=== PATIENT | female | born 1980 | race Caucasian/White ===

== ENCOUNTER 2024-03-14 12:42 | Outpatient (AMB) | payer OTHER, SELFPAY ==
--- NOTE | 2024-03-14 13:01 | A.OFFPC_ITS ---
Vital Signs 03/14/24 13:04 Height 5 ft 6 in Weight 144 lb 6 oz BMI 23.3 BP 103/66 Blood Pressure Location Lt brachial Position Sitting Respiration 12 Pulse 63 Pulse Source Pulse Oximeter Pulse Oximetry (%) 98 Oxygen Delivery Method Room Air Intake Visit Reasons: [facility] care requesting a PE Intake Note: new patient to establish care Class 1 Owner Operator Required: No Allergies No Known Allergies Allergy (Verified 03/14/24 13:23) Medication List - Last Reconciled 03/14/24 by ROB Vo estradiol patches transdermal lamotrigine 100 mg PO DAILY progesterone micronized 100 mg PO BEDTIME Tobacco use date assessed: 03/14/24 Dental Screening Dental Screen Date: 03/14/24 Did you have a dental visit in the last 12 months?: No Did you have a dental problem in the last 6 months where you did not have access to dental care?: No Was dental information given to patient?: Patient has dentist HPI HPI Comments History of Present Illness Details 44-year-old female with bipolar disorder with suicide attempt and psych hospitalizations, perimenopausal, acne , seasonal allergies Health Maintenance: ? Colon ? Mammo Jun 2024 has one scheduled ? DEXA n/a ? PAP UTD ? Tdap declined Specialists: Psychology Dermatology OBGyn Allergy immunology Here today for CPE, as a new patient. Optho - no glasses. No concerns. Exercising. Eating well. Active w/ care team. Has diarrhea - described as borderline - when eating white bread this resolves it. Complain of seasonal allergies uncontrolled with thoc-jqn-[id number] use of antihistamines and Flonase. Plan Advised to add simple starch into diet, such as white bread, to resolve diarrhea. Continue care with care team. Refer to Allergy and immunology for allergy testing and treatment. Continue all medications as currently prescribed Return to the office in 1 year for complete physical exam, sooner as needed [facility] Medical History Bipolar disorder Surgical History (Updated 03/14/24 @ 13:10 by Uma Vallejo MA) No pertinent past surgical history Family History (Updated 03/14/24 @ 13:13 by Uma Vallejo MA) Father Hypertension Mother Mental health disorder Alcoholism Psychiatric disorder Paternal Grandmother Clotting disorder Paternal Grandfather Prostate cancer Maternal Grandmother Uterine cancer Social History (Updated 03/14/24 @ 13:08 by Uma Vallejo MA) Household Members: None Both parents involved: No Housing: Apartment Are you a primary nurse care manager to a significant other at home: No Do you presently have visiting nurse or other home services: No 75 years or older and lives alone: No Alcohol intake: never Patient Tobacco Use Status: Former Tobacco user Tobacco use type: Cigarette e-Cigarette/Vaping Use: Never Used Second Hand Smoke Exposure: No service: No Current occupational status: disabled Current occupational exposures/hazards: No Cognitive needs: No Hearing needs: No Vision needs: No Questionnaire PHQ-9 Over the last 2 weeks, how often have you been bothered by any of the following problems? 1. Little interest or pleasure in doing things: several days 2. Feeling down, depressed, or hopeless: several days 3. Trouble falling or staying asleep, or sleeping too much: several days 4. Feeling tired or having little energy: not at all 5. Poor appetite or overeating: not at all 6. Feeling bad about yourself - or that you are a failure or have let yourself or your family down: not at all 7. Trouble concentrating on things, such as reading the newspaper or watching television: several days 8. Moving or speaking so slowly that other people could have noticed. Or the opposite - being so fidgety or restless that you have been moving around a lot more than usual: not at all 9. Thoughts that you would be better off or of hurting yourself in some way: not at all Total score: 4 Depression Screening Interpretation: Negative Depression Screening Done: Yes 94975 - PHQ-9 Billing: Yes Source: Developed by Drs. Daniel Toro, Enid Pelayo, Gomez Lamar and colleagues, with an educational [place] from [employer]) by [employer]. Thrive Questionnaire Date Thrive assessed: 03/14/24 I am a: Patient What is your living situation today?: I have a steady place to live Within the past 12 months, did the food you bought not last and you didn't have the money to get more?: Sometimes True Within the past 12 months, did you worry whether your food would run out before you got money to buy more?: Sometimes True Do you have trouble paying for medicines?: No Do you have trouble getting transportation to medical appointments?: Yes Do you have trouble paying your heating and electricity bill?: Yes Do you have trouble taking care of your child, family member or friend?: No Do you have trouble with day-to-day activities such as bathing, preparing meals, shopping, managing finances, etc.?: I choose not to answer this question Are you currently unemployed and looking for a job?: I choose not to answer this question Are you interested in more education?: I choose not to answer this question Please select the resources that you would like help with: Job search/training and Education Currently or been in a relationship where the following occur: I choose not to answer THRIVE Score: 4 AUDIT C Alcohol Use Questionnaire (AUDIT-C) 1. How often do you have a drink containing alcohol?: Never Total Score: 0 Score Reviewed/Action Taken: Yes JAKUB-7 AMB Questionnaire JAKUB-7 Date JAKUB - 7 assessed: 03/14/24 Feeling nervous, anxious, or on edge: 1 = Several days Not being able to stop or control worryin = Several days Worrying too much about different things: 2 = More than half the days Trouble relaxin = Several days Being so restless that it is hard to sit still: 1 = Several days Becoming easily annoyed or irritable: 2 = More than half the days Feeling afraid as if something awful might happen: 2 = More than half the days Total JAKUB-7 score (0-4 normal; 5-9 mild; 10-14 moderate; 15-21 severe): 10 Source: Developed by Drs. Daniel Toro, Enid Pelayo, Gomez Lamar and colleagues, with an educational [place] from [employer]) by [employer]. JAKUB-7 Assessment Billing JAKUB-7 Assessment Tool: JAKUB-7 Assessment 63451 Review of Systems Const Details: Constitutional: Denies fever. Skin: Denies rash. Eye: Denies eye pain. ENMT: Denies sore throat and nasal congestion. Respiratory: Denies shortness of breath and cough. Gastrointestinal: Denies nausea, vomiting or abdominal pain. Cardiovascular: Denies chest pain and syncope. Genitourinary: Denies dysuria. Musculoskeletal: Denies back pain and extremity pain. Neurologic: Denies headaches, confusion, and weakness. Psychiatric: Denies suicidal thoughts and substance abuse. Allergy/ Immunologic: Denies impaired immunity. Physical exam (Primary Care) Vital Signs: Last Vital Signs Pulse 63 03/14/24 13:04 Resp 12 03/14/24 13:04 BP 103/66 03/14/24 13:04 Pulse Ox 98 03/14/24 13:04 Oxygen Delivery Method Room Air 03/14/24 13:04 BMI result Body Mass Index 23.3 Tobacco/Smoking Status: Tobacco use Status Tobacco use date assessed 03/14/24 03/14/24 13:08 Patient Tobacco Use Status Former Tobacco user 03/14/24 13:08 Tobacco use type Cigarette 03/14/24 13:08 e-Cigarette/Vaping Use Never Used 03/14/24 13:08 PHQ-9: PHQ-9 Score PHQ-9: Total score 4 03/14/24 13:31 Depression Screening Interpretation: Negative Thrive Assessment: Date of Thrive Assessment Date Thrive assessed 03/14/24 03/14/24 13:03 Currently or been in a relationship where the following occur: I choose not to answer Const Other: General: Well developed, well nourished, in no acute distress. Appears stated age. Head: Normocephalic, atraumatic. Eyes: Pupils are equal, round and reactive to light and accommodation. Conjunctivae are clear. Vision grossly normal. Ears: TMs clear AU, EACS WNL Nose: Patent, without discharge. Mouth: There are no ulcers or lesions noted. No inflammation, no post nasal drip, no plaques nor exudates. Neck: Supple, no adenopathy or thyromegaly. Lungs: Clear to auscultation bilaterally. No rales, rhonchi or wheeze noted. Good air flow in all alvarado. Heart: Regular rate and rhythm. No murmurs, click, rubs or gallops are noted. Abdomen: Bowel sounds present in all quadrants. The abdomen is soft, nontender, with no masses or organomegaly noted. No hernias are noted. Musculoskeletal: Joints are nontender, without swelling, redness, or effusions. Range of motion is observed to be normal. Pulses: Peripheral pulses are equal and palpable bilaterally. Extremities: No clubbing, cyanosis nor edema is noted. Neurologic: Gait and station normal. Cranial Nerves 2-12 intact. Motor strength grossly symmetrical and intact. No sensory loss. Balance normal. Skin: No rashes, ulcers, or lesions noted. Turgor is good. Skin color is good. Hair and nails are without abnormalities. Psych: Normal eye contact, affect and mood appropriate, and normal interactions. Patient is alert and appropriate to context. Coding Level of Care Code New Pt Prev Care 40-64y(66444) Diagnoses Encounter for general adult medical examination without abnormal findings Z00.00 Seasonal allergies J30.2 Bipolar affective disorder, currently depressed, mild F31.31 Active/Remission status: currently active Current bipolar episode type: depressed Current episode severity: mild Additional Codes JAKUB-7 Assessment Billing - JAKUB-7 Assessment Tool: JAKUB-7 Assessment 71746 ([id number]) PHQ-9 - 23784 - PHQ-9 Billing: Yes ([id number]) Assessment & Plan Assessment & Plan (1) Encounter for general adult medical examination without abnormal findings: Code(s): Z00.00 - Encounter for general adult medical examination without abnormal findings Plan: . (2) Seasonal allergies: Code(s): J30.2 - Other seasonal allergic rhinitis Category: Medical Plan: .. (3) Bipolar disorder: Code(s): F31.9 - Bipolar disorder, unspecified Category: Medical Qualifiers: Active/Remission status: currently active Current bipolar episode type: depressed Current episode severity: mild Qualified Code(s): F31.31 - Bipolar disorder, current episode depressed, mild Plan: . Orders: Referrals Allergy & Immunology Referral J30.2 - Other seasonal allergic rhinitis Patient Instructions: Walk-In Care (Urgent Care): We Make it Easy Walk-in for urgent medical issues such as: ? Seasonal Allergies ? Insect Bites ? Cough ? Diarrhea ? Acute Asthma Attacks ? Back, Knee or Joint Pain ? Ear Infection ? Fever without a Rash ? Headaches ? Nausea ? [place] Eye, Rash or Skin Irritation ? Sore Throat ? Sports Physicals ? Vomiting Most insurances are accepted. Patients do not need to be part of the [facility] to seek care at the walk-in clinic. Locations [facility] [address], [place] [address] ? [phone] [facility] in [place] provides services to ages 18 and over. Open Tuesday-Tuesday: 8 a.m. to 5 p.m. and Tuesday: 9 a.m. to 3 p.m.* *Hours may vary due to staffing availability. To confirm Walk-In Care hours in [place], please call [phone]. [address] [place] [address] ? [phone] [facility] in [place] provides services to ages 12 and over. Open Tuesday-Tuesday: 8 a.m. to 5 p.m. Hours may vary due to staffing availability. To confirm Walk-In Care hours in [place], please call [phone]. LABORATORY SERVICES: [facility] ? Primary Location [address] [place] [address] Tuesday through Tuesday 6:00 AM ? 5:00 PM Tuesday 7:00 AM ? 11:00 AM* [phone] The [facility] is centrally located near the front entrance of the [facility] for easy outpatient access. Convenient parking is provided for outpatients. *Hours may vary due to staffing availability. To confirm Laboratory hours for any location, please call [phone]. Offsite Location For your convenience, we offer offsite laboratory draw stations at the following locations: [address] [place] [address] ? [address], [address] Tuesday through Tuesday 7:30 AM ? 1:00 PM* [phone] *Hours may vary due to staffing availability. To confirm Laboratory hours for any location, please call [phone]. [place] ? [address] Tuesday through Tuesday 6:00 AM ? 3:30 PM* Tuesday 6:30 AM ? 3 PM* [phone] *Hours may vary due to staffing availability. To confirm Laboratory hours for any location, please call [phone] [place] [address] Tuesday through Tuesday 7:30 AM ? 4:00 PM* [phone] *Hours may vary due to staffing availability. To confirm Laboratory hours for any location, please call [phone] [place] [address] Tuesday through 9:00 AM ? 4:00 PM* *Hours may vary due to staffing availability. To confirm Laboratory hours for any location, please call [phone]. Appointments are not necessary. Walk-ins are welcome. Like all the departments throughout the [facility], our Lab undergoes frequent reviews to ensure the quality and accuracy of test results, and our staff takes special pride in its status as a nationally accredited facility. Patient Portal: ONE PATIENT. ONE RECORD. BETTER CARE. [facility] has a fully integrated, cutting- edge mobile electronic health information system that has revolutionized the way we care for our patients and manage our organization. This system improves communication and coordination enabling us to provide safe, higher-quality care, and an overall positive experience for staff and patients. Our first priority, as always, is to deliver the highest quality care possible. The system is running in the background supporting that priority. This portal is for all [facility] and [facility] services and practices. If you are experiencing any technical difficulties with enrolling or logging into the Patient Portal please complete the [facility] Patient Portal Technical Support Form. [facility] now offers a new secure on-line interactive tool for patients to review their health information ? ?Patient Portal. This interactive web portal will enable patients and their families to take an active role in their care by providing easy, secure access to their health information via the internet. The Patient Portal provides patients with instant access to their health information, including laboratory results, medications, allergies, demographic information, visit history, and more. In addition to managing their own care, parents and health care proxies with authorized consent will appreciate the ability to access the records of those individuals for whom they provide care. Please note: if you wish to gain access (Proxy) to another patient?s portal, you will be required to come to the Medical Records Department in person at [facility]. Both the patient giving proxy access and the proxy will need to provide photo identification and complete the appropriate authorization. The Patient Portal also allows track their appointments online. The [facility] Patient Portal also saves patients time by allowing them to submit updates to their demographic and contact information prior to their visits. Portal email notifications will also alert patients to any new activity on their portal, such as test results and new appointments. In order to initially enroll in the [facility] Patient Portal, you will need to enter some required information including the following: * your [facility] Medical Record number * your personal home email address * name * date of Please note: In order to enroll in the [facility] Patient Portal, we need to have y our email address on file in your electronic medical record. ?The email address needs to be specific for one person (yourself) in order for your Portal enrollment to be successful. ?You can update your email address in person with our Registration staff when you are registering for a hospital visit. ?Otherwise, you will need to come to the Health Information Management (Medical Records) Department at [facility]. ?We are open from Tuesday ? Tuesday from 7:30 a.m. ? 4:30 p.m. ?You will be required to present a photo id. Once you have successfully enrolled in the Patient Portal, you will receive a one-time user id and password for the Portal, sent to your email address. ?This will allow you to log into the Patient Portal within 99 hrs and reset your own logon id and password, and define personal security questions. ?Once your permanent login and password have been set, you can log into the [facility] Patient Portal at any time via the blue button above or from the Portal Logon button on any page of the [facility] website. [facility] and [facility] encourage all of our patients to enroll in Patient Portal as it presents a valuable opportunity for patients and their families to actively participate in their care and stay healthy Welcome to [facility]. ?We look forward to working with you. Health screenings for women You should visit your health care provider from time to time, even if you are healthy. The purpose of these visits is to: Screen for medical issues Assess your risk for future medical problems Encourage a healthy lifestyle Update vaccinations and other preventive care services Help you get to know your provider in case of an illness Information Even if you feel fine, you should still see your provider for regular checkups. These visits can help you avoid problems in the future. For example, the only way to find out if you have high blood pressure is to have it checked regularly. High blood sugar and high cholesterol levels also may not have any symptoms in the early stages. A simple blood test can check for these conditions. There are specific times when you should see your provider or receive specific health screenings. The [place] Preventive Services Task Force publishes a list of recommended screenings. Below are screening guidelines for women ages 18 to 39. BLOOD PRESSURE SCREENING Your blood pressure should be checked at least once every 3 to 5 years if: Your blood pressure is in the normal range (top number less than 120 mm Hg and bottom number less than 80 mm Hg) You don't have risk factors for high blood pressure Ask your provider if you need your blood pressure checked more often if: The top number is 120 to 129 mm Hg or the bottom number is 70 to 79 mm Hg You have diabetes, heart disease, kidney problems, are overweight, or have certain other health conditions You have a first-degree relative with high blood pressure You are Black You had high blood pressure during a If the top number is 130 mm Hg or greater or the bottom number is 80 mm Hg or greater, this is considered stage 1 hypertension. Schedule an appointment with your provider to learn how you can reduce your blood pressure. Watch for blood pressure screenings in your area. Ask your provider if you can stop in to have your blood pressure checked. BREAST CANCER SCREENING Experts do not agree about the benefits of breast self-exams in finding breast cancer or saving lives. Talk to your provider about what is best for you. A screening mammogram is not recommended for most women under age 40. Your provider may discuss and recommend mammograms, MRI scans, or ultrasounds if you have an increased risk for breast cancer, such as: A mother or sister who had breast cancer at a young age (most often starting screening earlier than the age the close relative was diagnosed) You carry a high-risk genetic marker CERVICAL CANCER SCREENING Cervical cancer screening should start at age 21 years unless your provider advises otherwise. After the first test: Women ages 21 through 29 should have a Pap test every 3 years. Exoprts do not agree on whether HPV testing is recommended for this age group. Women ages 30 through 65 should be screened with either a Pap test every 3 years or the HPV test every 5 years or both tests every 5 years (called cotesting ). Women who have been treated for precancer (cervical dysplasia) should continue to have Pap tests for 20 years after treatment or until age 65, whichever is longer. If you have had your uterus and cervix removed (total hysterectomy), and you have not been diagnosed with cervical cancer or precancer (high grade cervical neoplasia), you do not need cervical cancer screening. CHOLESTEROL SCREENING Cholesterol screening should begin at: Age 45 for women with no known risk factors for coronary heart disease Age 20 for women with known risk factors for coronary heart disease Repeat cholesterol screening should take place: Every 5 years for women with normal cholesterol levels More often if changes occur in lifestyle (including weight gain and diet) More often if you have diabetes, heart disease, kidney problems, or certain other conditions DIABETES SCREENING You should be screened for diabetes starting at age 35 and then repeated every 3 years if you have no risk factors for diabetes. Screening may need to start earlier and be repeated more often if you have other risk factors for diabetes, such as: You have a first degree relative with diabetes. You are overweight or have obesity. You have high blood pressure, prediabetes, or a history of heart disease. Screening for diabetes should be done if you are planning to become and you are overweight and have other risk factors such as high blood pressure. DENTAL EXAM Go to the dentist once or twice every year for an exam and cleaning. Your dentist will evaluate if you need more frequent visits. EYE EXAM Have an eye exam every 5 to 10 years before age 40. If you have vision problems, have an eye exam every 2 years or more often if recommended by your provider. You should have an eye exam that includes an examination of your retina (back of your eye) at least every year if you have diabetes. IMMUNIZATIONS Commonly needed vaccines include: Flu shot: get one every year. COVID-19 vaccine: ask your provider what is best for you. Tetanus-diphtheria and acellular pertussis (Tdap) vaccine: have one at or after age 19 as one of your tetanus-diphtheria vaccines if you did not receive it as an adolescent. Tetanus-diphtheria: have a booster (or Tdap) every 10 years. Varicella vaccine: receive 2 doses if you never had chickenpox or the varicella vaccine. Hepatitis B vaccine: receive 2, 3, or 4 doses, depending on your exact circumstances. Measles, mumps, and rubella (MMR) vaccine: receive 1 to 2 doses if you are not already immune to MMR. Your provider can tell you if you are immune. Ask your provider about the human papillomavirus (HPV) vaccine if: You have not received the HPV vaccine in the past You have not completed the full vaccine series (you should catch up on this shot) Ask your provider if you should receive other immunizations if you have certain health problems that increase your risk for some diseases such as pneumonia. INFECTIOUS DISEASE SCREENING Women who are sexually active should be screened for chlamydia and gonorrhea up until age 25. Women 25 years and older should be screened for chlamydia and gonorrhea if at high risk. Screening for hepatitis C: All adults ages 18 to 79 should get a one-time test for hepatitis C. people should be screened at every . Screening for human immunodeficiency virus (HIV): All people ages 15 to 65 should get a one-time test for HIV. Depending on your lifestyle and medical history, you may also need to be screened for infections such as syphilis and HIV, as well as other infections. PHYSICAL EXAM All adults should visit their provider from time to time, even if they are healthy. The purpose of these visits is to: Screen for disease Assess your risk of future medical problems Encourage a healthy lifestyle Update your vaccinations and other preventive care services Maintain a relationship with a provider in case of an illness Your height, weight, and BMI should be checked at every exam. During your exam, your provider may ask you about: Depression and anxiety Diet and exercise Alcohol and tobacco use Safety issues, such as using seat belts, smoke detectors, and intimate partner violence Your medicines and risk for interactions SKIN SELF-EXAM Your provider may check your skin for signs of skin cancer, especially if you're at high risk, such as if you: Have had skin cancer before Have close relatives with skin cancer Have a weakened immune system OTHER SCREENING Talk with your provider about colon cancer screening if you have a strong family history of colon cancer or polyps, or if you have had inflammatory bowel disease or polyps yourself. Routine bone density screening of women under 40 is not recommended.
[2024-03-14 13:04] VITALS: BP 103/66; PULSE 63; RESP 12; O2SAT 98; BMI 23.3
== END 2024-03-14 13:37 | disposition home or self-care (01) ==
LOC: HO.HMCFM 12:43
PROVIDERS: PCP Nurse Practitioner Family; Visit Provider Nurse Practitioner Family
DX: Z00.00 Encounter for general adult medical examination without abnormal findings (principal); J30.2 Other seasonal allergic rhinitis; F31.31 Bipolar disorder, current episode depressed, mild

== ENCOUNTER → 2024-03-14 12:42 | Outpatient (BNVA) | payer OTHER, SELFPAY | PROVIDERS: PCP Nurse Practitioner Family; Visit Provider Nurse Practitioner Family | DX: Z00.00 Encounter for general adult medical examination without abnormal findings (principal); J30.2 Other seasonal allergic rhinitis; F31.31 Bipolar disorder, current episode depressed, mild | CPT/HCPCS: 96127; 99386 ==

== ENCOUNTER 2024-07-11 15:23 | Outpatient (AMB) | payer OTHER, SELFPAY ==
--- NOTE | 2024-07-11 15:26 | MHC.PC.OV ---
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 Required: No Allergies No Known Allergies Allergy (Verified 07/11/24 15:43) Medication List - Last Reconciled 07/11/24 by KEERTHI Vo- estradiol patches transdermal lamotrigine 150 mg PO DAILY olanzapine 2.5 mg PO DAILY progesterone micronized 100 mg PO BEDTIME Tobacco use date assessed: 07/11/24 Dental Screening Dental Screen Date: 07/11/24 Did you have a dental visit in the last 12 months?: Yes Did you have a dental problem in the last 6 months where you did not have access to dental care?: No Was dental information given to patient?: Patient has dentist HPI HPI Comments History of Present Illness Details 44-year-old female with bipolar disorder with suicide attempt and psych hospitalizations, perimenopausal, acne , seasonal allergies Health Maintenance: ? Colon ? Mammo Jun 2024 has one scheduled ? DEXA n/a ? PAP UTD ? Tdap declined Specialists: Psychology Dermatology OBGyn Allergy immunology History of Present Illness - The patient is a 44-year-old female presenting with concerns regarding her immunization and vaccine status. - The patient is planning to start college in the fall for a health sciences program and requires updated immunizations for registration purposes. - She does not have her original immunization records, including those for Varicella and Tetanus, last updated in her late 20s. - She has already received three COVID-19 vaccinations, as verified by the state registry. - A recommendation was made for a Tetanus booster, given the uncertainty of her vaccination status. - The patient has engaged with [employer] for titer testing, as part of her program requirements, covering potential immunity for Hepatitis, Measles, Mumps, and Rubella. - Additional consideration for program-specific vaccinations, including potential future flu vaccination according to the year requirements, was discussed. Social History - The patient plans to enroll in college in the fall for a program in health sciences, with interest in radiology technology or respiratory therapy. Health Maintenance - Discussion on updating immunizations for college registration, including plans for a Tetanus booster. - Initiation and verification of COVID-19 vaccinations mentioned. - Plans to check serologic titers for immunity to Hepatitis, Measles, Mumps, and Rubella. - Anticipatory guidance provided for required flu vaccination due to program stipulations. Review of Systems - General: Denies any current health issues, reports being 100% well. - Immunologic: Reports uncertainty about past Varicella vaccination and need for Tetanus booster. Physical Exam General: Well developed, well nourished, in no acute distress. Appears stated age. Head: Normocephalic, atraumatic. Eyes: Pupils are equal, round and reactive to light and accommodation. Conjunctivae are clear. Vision grossly normal. Lungs: Clear to auscultation bilaterally. No rales, rhonchi or wheeze noted. Good air flow in all alvarado. Heart: Regular rate and rhythm. No murmurs, click, rubs or gallops are noted. Psych: Normal eye contact, affect and mood appropriate, and normal interactions. Patient is alert and appropriate to context. Discussion Notes I discussed with the patient the importance of updating her immunizations for her upcoming college program, particularly focusing on ensuring Tetanus vaccination and checking her immunity status for Hepatitis, Measles, Mumps, and Rubella through titer tests. I recommended proceeding with a Tetanus booster today due to her uncertainty of prior vaccinations. We discussed the patient's participation in a patient portal to access her vaccination records and facilitated guidance on obtaining necessary immunizations at her local pharmacy. I also reviewed the need to meet specific program vaccination requirements, including anticipated flu vaccination, and reassured on following the upcoming test results to inform further actions. Assessment and Plan 1. Immunization Status Update: The patient's immunization status is indeterminate, necessitating a Tetanus booster today. I'll facilitate serologic testing for immunity regarding Hepatitis, Measles, Mumps, and Rubella, assisting her program registration. Additional vaccinations will be pursued through local pharmacy options, post-test results. Patient Instructions - Receive the Tetanus booster today. - Visit the lab for serologic testing of Hepatitis, Measles, Mumps, and Rubella titers today - Look for updates in the patient portal regarding immunity status. - If necessary based on results, proceed to the local pharmacy to receive the recommended vaccinations. - Plan for a fall flu vaccine per program requirements. - CPE form given 03/2024 Consent The patient consented to receive the Tetanus booster today after discussing the benefits, including protection from Tetanus infection, and the absence of significant risks with the booster. Consent was verbally obtained from the patient. Patient was informed and verbally consented to the use of an ambient scribe for clinic note documentation during this visit. Total time spent caring for the patient today was 30 minutes. This includes time spent before the visit reviewing the chart, time spent during the visit, and time spent after the visit on documentation, reviewing laboratory results, diagnostic imaging, medications, performing a medically necessary evaluation, counseling on diagnoses, care coordination, ordering appropriate tests, ordering appropriate medications, review of tests performed by other providers, reporting test results with the patient, communication with other healthcare providers. [facility] Medical History Bipolar disorder Surgical History (Updated 03/14/24 @ 13:10 by Uma Vallejo MA) No pertinent past surgical history Family History (Updated 03/14/24 @ 13:13 by Uma Vallejo MA) Father Hypertension Mother Mental health disorder Alcoholism Psychiatric disorder Paternal Grandmother Clotting disorder Paternal Grandfather Prostate cancer Maternal Grandmother Uterine cancer Social History (Updated 03/14/24 @ 13:08 by Uma Vallejo MA) Household Members: None Housing: Apartment Are you a primary manager managed care to a significant other at home: No Do you presently have visiting nurse or other home services: No Alcohol intake: never Patient Tobacco Use Status: Former Tobacco user Tobacco use type: Cigarette e-Cigarette/Vaping Use: Never Used Second Hand Smoke Exposure: No service: No Current occupational status: disabled Current occupational exposures/hazards: No Cognitive needs: No Hearing needs: No Vision needs: No Questionnaire PHQ-9 Over the last 2 weeks, how often have you been bothered by any of the following problems? 1. Little interest or pleasure in doing things: not at all 2. Feeling down, depressed, or hopeless: not at all 3. Trouble falling or staying asleep, or sleeping too much: not at all 4. Feeling tired or having little energy: not at all 5. Poor appetite or overeating: not at all 6. Feeling bad about yourself - or that you are a failure or have let yourself or your family down: not at all 7. Trouble concentrating on things, such as reading the newspaper or watching television: not at all 8. Moving or speaking so slowly that other people could have noticed. Or the opposite - being so fidgety or restless that you have been moving around a lot more than usual: not at all 9. Thoughts that you would be better off or of hurting yourself in some way: not at all Total score: 0 Depression Screening Interpretation: Negative Depression Screening Done: Yes 04873 - PHQ-9 Billing: Yes Source: Developed by Drs. Daniel Toro, Enid Pelayo, Gomez Lamar and colleagues, with an educational [place] from [employer]. Thrive Questionnaire Date Thrive assessed: 07/11/24 I am a: Patient What is your living situation today?: I have a steady place to live Within the past 12 months, did the food you bought not last and you didn't have the money to get more?: I choose not to answer this question Within the past 12 months, did you worry whether your food would run out before you got money to buy more?: I choose not to answer this question Do you have trouble paying for medicines?: I choose not to answer this question Do you have trouble getting transportation to medical appointments?: I choose not to answer this question Do you have trouble paying your heating and electricity bill?: I choose not to answer this question Do you have trouble taking care of your child, family member or friend?: I choose not to answer this question Do you have trouble with day-to-day activities such as bathing, preparing meals, shopping, managing finances, etc.?: I choose not to answer this question Are you currently unemployed and looking for a job?: I choose not to answer this question Are you interested in more education?: I choose not to answer this question Please select the resources that you would like help with: None Currently or been in a relationship where the following occur: I choose not to answer THRIVE Score: 0 AUDIT C Alcohol Use Questionnaire (AUDIT-C) 1. How often do you have a drink containing alcohol?: Never 3. How often do you have six or more drinks on one occasion?: Never Total Score: 0 Score Reviewed/Action Taken: Yes JAKUB-7 AMB Questionnaire JAKUB-7 Date JAKUB - 7 assessed: 07/11/24 Feeling nervous, anxious, or on edge: 1 = Several days Not being able to stop or control worryin = Several days Worrying too much about different things: 1 = Several days Trouble relaxin = Several days Being so restless that it is hard to sit still: 0 = Not at all Becoming easily annoyed or irritable: 1 = Several days Feeling afraid as if something awful might happen: 1 = Several days Total JAKUB-7 score (0-4 normal; 5-9 mild; 10-14 moderate; 15-21 severe): 6 Source: Developed by Drs. Daniel Toro, Enid Pelayo, Gomez Lamar and colleagues, with an educational [place] from [employer]. JAKUB-7 Assessment Billing JAKUB-7 Assessment Tool: JAKUB-7 Assessment 73088 Physical exam (Primary Care) Vital Signs: Last Vital Signs Temp 97.2 F 07/11/24 15:30 Pulse 54 07/11/24 15:30 Resp 12 07/11/24 15:30 BP 96/66 07/11/24 15:30 Pulse Ox 100 07/11/24 15:30 Oxygen Delivery Method Room Air 07/11/24 15:30 BMI result Body Mass Index 22.6 Tobacco/Smoking Status: Tobacco use Status Tobacco use date assessed 07/11/24 07/11/24 15:33 Patient Tobacco Use Status Former Tobacco user 07/11/24 15:33 Tobacco use type Cigarette 07/11/24 15:33 e-Cigarette/Vaping Use Never Used 07/11/24 15:33 PHQ-9: PHQ-9 Score PHQ-9: Total score 0 07/11/24 15:46 Depression Screening Interpretation: Negative Thrive Assessment: Date of Thrive Assessment Date Thrive assessed 07/11/24 07/11/24 15:33 Currently or been in a relationship where the following occur: I choose not to answer Immunizations Boostrix Tdap 2.5 Lf unit-8 mcg-5 Lf/0.5 mL intramuscular syringe Performing Provider: ROB Vo Performing Location: [facility] [place] Family Medicine Administered by: Germaine Franks RN on 07/11/24 16:17 Dose Route Admin Location Dispensed Lot Number Expiration Date [facility] [place] [employer] 0.5 mL IM Right Deltoid 0.5 mL [id number] 03/05/25 [id number] Nova Ratio VIS Given Date VIS Provided VIS Publication Date 07/11/24 Single Vaccine 20 Eligibility Eligibility Date Funding Source Not VF Eligible 07/11/24 Private Coding Level of Care Code Est Pt Level 4 (42953) Complex EM visit Add On G2211 Diagnoses Immunity status testing Z01.84 Need for Tdap vaccination Z23 Influenza vaccination declined Z28.21 Additional Codes JAKUB-7 Assessment Billing - JAKUB-7 Assessment Tool: JAKUB-7 Assessment 09190 ([id number]) PHQ-9 - 04634 - PHQ-9 Billing: Yes ([id number]) Assessment & Plan Assessment & Plan (1) Immunity status testing: Code(s): Z.84 - Encounter for antibody response examination Category: Medical (2) Need for Tdap vaccination: Code(s): Z23 - Encounter for immunization Category: Medical (3) Influenza vaccination declined: Code(s): Z28.21 - Immunization not carried out because of patient refusal Category: Medical Plan . Orders: Orders MMR IgG Measles Mumps Rubella Today Z84 - Encounter for antibody response examination Hepatitis B Surface Antibody Today Z84 - Encounter for antibody response examination Varicella IgG Antibody Today Z.84 - Encounter for antibody response examination T Spot TB Today Z.84 - Encounter for antibody response examination TDaP Immunization Today Z23 - Encounter for immunization Medications: New Boostrix Tdap (diphth,pertus(acell),tetanus) 0.5 mL IM ONCE 0.5 mL 0RF NS Z23 - Encounter for immunization
[2024-07-11 15:30] VITALS: BP 96/66; PULSE 54; RESP 12; TEMP 36.2; O2SAT 100; BMI 22.6
== END 2024-07-11 16:14 | disposition home or self-care (01) ==
PROVIDERS: PCP Nurse Practitioner Family; Visit Provider Nurse Practitioner Family
DX: Z01.84 Encounter for antibody response examination (principal); Z23 Encounter for immunization; Z28.21 Immunization not carried out because of patient refusal

== ENCOUNTER → 2024-07-11 15:23 | Outpatient (BNVA) | payer OTHER, SELFPAY | PROVIDERS: PCP Nurse Practitioner Family; Visit Provider Nurse Practitioner Family ==

== ENCOUNTER 2024-07-11 15:51 | Outpatient (REF) | payer OTHER, SELFPAY ==
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
[2024-07-12 08:49] LABS: HBS Num1 0.05 mIU/mL (0-7.99); ~Hepatitis B Surface Antibody NONREACTIVE (Nonreactive)
[2024-07-12 17:43] LABS: Rubella IgG Antibody 5.36 Index
[2024-07-13 20:19] LABS: Varicella IgG Antibody 7.18 S/CO
[2024-07-14 11:39] LABS: TS Negative Control Passed; TS Panel A 0; TS Panel B 1; TS Positive Control Passed; TSpotTB Negative (Negative)
== END 2024-07-11 15:52 | disposition home or self-care (01) ==
LOC: HO.WFDLDS 15:51
PROVIDERS: Visit Provider Nurse Practitioner Family
DX: Z01.84 Encounter for antibody response examination (principal); Z23 Encounter for immunization; Z28.21 Immunization not carried out because of patient refusal
CPT/HCPCS: 36415; 86481; 86706; 86735; 86762; 86765; 86787; 90471; 90715; 96127; 99212

== ENCOUNTER 2025-03-20 11:57 | Outpatient (AMB) | payer OTHER, SELFPAY ==
--- NOTE | 2025-03-20 12:01 | A.OFFPC_ITS ---
Vital Signs 03/20/25 12:02 Height 5 ft 6 in Weight 140 lb BMI 22.6 BP 106/82 Blood Pressure Location Rt brachial Position Sitting Respiration 12 Pulse 51 Pulse Source Pulse Oximeter Temp 97.4 F Temp Source Oral Pulse Oximetry (%) 99 Oxygen Delivery Method Room Air Intake Visit Reasons: 1 year CPE Intake Note: Physical Hospital Admitting Clerk Required: No Allergies No Known Allergies Allergy (Verified 03/20/25 12:09) Medication List - Last Reconciled 03/20/25 by KEERTHI oV- estradiol patches transdermal fluvoxamine 25 mg PO BID lamotrigine 150 mg PO DAILY olanzapine 2.5 mg PO DAILY progesterone micronized 100 mg PO BEDTIME Tobacco use date assessed: 03/20/25 Dental Screening Dental Screen Date: 07/11/24 HPI HPI Comments History of Present Illness Details 45-year-old female with bipolar disorder with suicide attempt and psych hospitalizations, perimenopausal, acne , seasonal allergies Health Maintenance: ? Colon cologaurd ordered for initial screen ? Mammo Jun 2024 has one scheduled (Shay) ? DEXA n/a ? PAP UTD, appt w/ Kwan STRUCTURAL STEEL TRADES WORKER tomorrow ? Tdap 2024, Declined flu 03/20/25 Specialists: Psychology appt this week Dermatology next appt Jun 2025 OBGyn Allergy immunology no longer ff'd History of Present Illness The patient is a 45-year-old female presenting for a complete physical exam. Bipolar Disorder: - The patient has a past medical history of bipolar disorder with a history of a suicide attempt and psychiatric hospitalizations. - She is managed by an outside psychiatr ist and her current medications include levolaxamine, lamotrigine, and olanzapine. - She reports feeling stressed but feels stable and has a support team. Perimenopause: - The patient is perimenopausal and is m anaged by her PROJECT ADMINISTRATOR. - She takes estradiol and progesterone. - She has an appointment to see her OBGY N for follow-up. Acne: - The patient reports hormonal acne asso ciated with perimenopause, which began after she turned 40. - She was using Retin-A, but her insuran ce is no longer covering it. - Her tobacco stripper is considering treat ment with spironolactone. Loose stools: - The patient expresses concern about gavino wel movements, loose at times, and questions if diet, such as white breads or high protein intake, is a contributing factor. - Her diet consists mainly of whole food s and she eats pretty well and clean, but she does try to incorporate some white breads as this helps her sx. Health Maintenance: - The patient's Tdap is updated and she received the hepatitis vaccine at [facility]. - She declined the flu shot at this time . - She had a normal mammogram recently, w hich was ordered by her PROJECT ADMINISTRATOR. - Having turned 45, she is now due for c olon cancer screening and has no family history of colon cancer. - She has declined screening labs for ch olesterol or diabetes. Past Medical History - Bipolar disorder with a history of sejal cide attempt and psychiatric hospitalizations - Perimenopause - History of allergies - History of a cyst removed from the [facility] as a child Past Surgical History - No surgeries within the last year - Remote history of cyst removal from [facility] Family History - No family history of colon cancer. - Denies any other changes in family med ical history in the last year. Social History - Education: The patient is currently in school completing prerequisites for a [employer] program after being out of school for 25 years. - Exercise: She is a runner. - Nutrition: The patient reports eating a mostly clean diet with whole foods and cooks often. - Weight Management: Her goal is to main tain her current weight, which has been stable. Health Maintenance - Present for an annual physical examina tion. - Mammogram: Recently completed with nor mal results. - Colon Cancer Screening: The patient tu rned 45 and is due for screening. - Immunizations: Tdap is up to date and she has had the hepatitis vaccine. - Lab screening: The patient declined sc reening labs for cholesterol and diabetes. - Gynecologic Care: She is under the car e of an PROJECT ADMINISTRATOR for perimenopause and has an upcoming appointment. - Psychiatric Care: She is managed by an outside psychiatrist for bipolar disorder. - Dermatologic Care: She sees a dermatol ogist for acne. Review of Systems - Constitutional: Reports stable weight. - Eyes: Denies any issues with eyes or v ision. - Endocrine: Reports hormonal acne. - Allergic/Immunologic: Denies significa nt allergy symptoms currently. - Psychiatric: Reports feeling stressed. - Neck: Reports a sensation of fullness or bigness in the gland area of the neck. - Gastrointestinal: Reports concerns abo ut bowel movements. - Integumentary: Denies any open areas, sores, or rashes on her feet. Physical Exam General: Well developed, well nourished, in no acute distress. Appears stated age. Head: Normocephalic, atraumatic. Eyes: Pupils are equal, round and reactive to light and accommodation. Conjunctivae are clear. Scleras nonicteric bilat. Vision grossly normal. Ears: TMs clear AU, EACS WNL Nose: Patent, without discharge. Neck: No carotid bruit bilat. Supple, no adenopathy or thyromegaly. Breast: Edu on SBE. Recent mammogram in June 2024 was normal. Lungs: Clear to auscultation bilaterally. No rales, rhonchi or wheeze noted. Good air flow in all alvarado. Heart: Regular rate and rhythm. No murmurs, click, rubs or gallops are noted. Abdomen: Bowel sounds present in all quadrants. The abdomen is soft, nontender, with no masses or organomegaly noted. No hernias are noted. : Deferred. Reviewed recommendations for routine STRUCTURAL STEEL TRADES WORKER. Patient is perimenopausal and managed by OBGYN with estradiol and progesterone. Pulses: Peripheral pulses are equal and palpable bilaterally. Extremities: No clubbing, cyanosis nor edema is noted. Neurologic: Gait and station normal. Cranial Nerves 2-12 intact. Motor strength grossly symmetrical and intact. No sensory loss. Balance normal. Skin: No rashes, ulcers, or lesions noted. Turgor is good. Skin color is good. Hair and nails are without abnormalities. Patient reports hormonal acne due to perimenopause. Psych: Normal eye contact, affect and mood appropriate, and normal interactions. Patient is alert and appropriate to context. History of bipolar disorder managed by an outside psychiatrist. Current medications include lamotrigine, olanzapine, and levolaxamine. Mood is reported as stressful, but patient feels stable with support. Results - Mammogram: Normal 06/2024 report keli javed Medical Decision Making The patient is a 45-year-old female here for her complete physical exam. Her past medical history is significant for bipolar disorder and she is also perimenopausal, both of which are stable and managed by appropriate specialists. The primary focus of this visit was on health maintenance, including a discussion of age-appropriate screenings. Given she has turned 45, colon cancer screening is now indicated. She has no family history of colon cancer. The options of a full colonoscopy versus an at- home Cologuard test were presented, and the patient opted for the Cologuard test for convenience. An order for the Cologuard test will be placed. Her immunizations are mostly up to date, although she declined the influenza vaccine at this time. Her recent mammogram was normal. The patient declined screening labs for cholesterol or diabetes. The patient also raised concerns about hormonal acne, which is being managed by her tobacco stripper, and bowel regularity. For constipation, dietary modifications were recommended, including adding more simple starches and a fiber supplement. Physical exam was unremarkable. Plan 1. Annual Physical Examination - Reviewed health maintenance and age-ap propriate screenings. - Discussed colon cancer screening optio ns; ordering Cologuard test as per patient preference. - Immunizations reviewed; patient declin ed influenza vaccine at this time. - Advised on dietary modifications for b owel regularity. - Patient will schedule a follow-up visi t for her annual exam next year. 2. Bipolar Disorder - The patient's condition is stable on h er current medication regimen of levolaxamine, lamotrigine, and olanzapine. - She will continue to follow up with he r psychiatrist for ongoing management. 3. Perimenopause - The patient is stable on estradiol and progesterone. - She will continue to follow with her O B/STRUCTURAL STEEL TRADES WORKER and has an appointment scheduled. 4. Acne - Patient reports hormonal acne, which i s being followed by her tobacco stripper. - She will continue to follow up with he r tobacco stripper for management. 5. Constipation - Recommended dietary changes to improve bowel regularity, including incorporating simple starches like white bread or rice, and considering a fiber supplement such as Metamucil. Patient Instructions - A Cologuard test kit will be mailed to your home for colon cancer screening. Please complete the test by submitting a stool sample and mail it back within two weeks. - To help with constipation, try adding more simple starches like white bread and white rice to your diet. You can also try a fiber supplement like Metamucil. - Continue taking all your current medic ations as prescribed by your doctors. - Keep your upcoming appointments with y our PROJECT ADMINISTRATOR and psychiatrist. - You declined the flu shot today, but i t is recommended to get it in the fall. - Please schedule your next annual physi ramya exam for next year. Consent The patient was informed that since she is 45, colon cancer screening is now recommended. The options of a full colonoscopy, including the prep involved, and an at-home Cologuard test were discussed. The Cologuard test was described as a non-invasive stool sample test that is mailed to her home, is very accurate, and is valid for three years. The patient verbally consented to and chose the Cologuard test. Patient was informed and verbally consented to the use of an ambient scribe for clinic note documentation during this visit. [facility] Medical History Bipolar disorder Surgical History (Updated 03/14/24 @ 13:10 by Uma Vallejo MA) No pertinent past surgical history Family History (Updated 03/14/24 @ 13:13 by Uma Vallejo MA) Father Hypertension Mother Mental health disorder Alcoholism Psychiatric disorder Paternal Grandmother Clotting disorder Paternal Grandfather Prostate cancer Maternal Grandmother Uterine cancer Social History (Updated 03/14/24 @ 13:08 by Uma Vallejo MA) Household Members: None Both parents involved: No Housing: Apartment Are you a primary primary care physician to a significant other at home: No Do you presently have visiting nurse or other home services: No 75 years or older and lives alone: No Alcohol intake: never Patient Tobacco Use Status: Former Tobacco user Tobacco use type: Cigarette e-Cigarette/Vaping Use: Never Used Second Hand Smoke Exposure: No service: No Current occupational status: disabled Current occupational exposures/hazards: No Cognitive needs: No Hearing needs: No Vision needs: No Questionnaire PHQ-9 Over the last 2 weeks, how often have you been bothered by any of the following problems? 1. Little interest or pleasure in doing things: not at all 2. Feeling down, depressed, or hopeless: not at all 3. Trouble falling or staying asleep, or sleeping too much: not at all 4. Feeling tired or having little energy: not at all 5. Poor appetite or overeating: not at all 6. Feeling bad about yourself - or that you are a failure or have let yourself or your family down: not at all 7. Trouble concentrating on things, such as reading the newspaper or watching television: not at all 8. Moving or speaking so slowly that other people could have noticed. Or the opposite - being so fidgety or restless that you have been moving around a lot more than usual: not at all 9. Thoughts that you would be better off or of hurting yourself in some way: not at all Total score: 0 Depression Screening Interpretation: Negative Depression Screening Done: Yes 22397 - PHQ-9 Billing: Yes Source: Developed by Drs. Daniel Toro, Enid Pelayo, Gomez Lamar and colleagues, with an educational [place] from [employer]. Thrive Questionnaire Date Thrive assessed: 07/08/24 I am a: Patient What is your living situation today?: I have a steady place to live Within the past 12 months, did the food you bought not last and you didn't have the money to get more?: I choose not to answer this question Within the past 12 months, did you worry whether your food would run out before you got money to buy more?: I choose not to answer this question Do you have trouble paying for medicines?: I choose not to answer this question Do you have trouble getting transportation to medical appointments?: I choose not to answer this question Do you have trouble paying your heating and electricity bill?: I choose not to answer this question Do you have trouble taking care of your child, family member or friend?: I choose not to answer this question Do you have trouble with day-to-day activities such as bathing, preparing meals, shopping, managing finances, etc.?: I choose not to answer this question Are you currently unemployed and looking for a job?: I choose not to answer this question Are you interested in more education?: I choose not to answer this question Please select the resources that you would like help with: None Currently or been in a relationship where the following occur: I choose not to answer THRIVE Score: 0 AUDIT C Alcohol Use Questionnaire (AUDIT-C) 1. How often do you have a drink containing alcohol?: Never 2. How many drinks containing alcohol do you have on a typical day when you are drinking?: 1 or 2 3. How often do you have six or more drinks on one occasion?: Never Total Score: 0 Score Reviewed/Action Taken: Yes JAKUB-7 AMB Questionnaire JAKUB-7 Date JAKUB - 7 assessed: 07/11/24 Source: Developed by Drs. Daniel Toro, Enid Pelayo, Gomez Lamar and colleagues, with an educational [place] from [employer]. Physical exam (Primary Care) Vital Signs: Last Vital Signs Temp 97.4 F 03/20/25 12:02 Pulse 51 03/20/25 12:02 Resp 12 03/20/25 12:02 BP 106/82 03/20/25 12:02 Pulse Ox 99 03/20/25 12:02 Oxygen Delivery Method Room Air 03/20/25 12:02 BMI result Body Mass Index 22.6 Tobacco/Smoking Status: Tobacco use Status Tobacco use date assessed 03/20/25 03/20/25 12:08 Patient Tobacco Use Status Former Tobacco user 03/20/25 12:08 Tobacco use type Cigarette 03/20/25 12:08 e-Cigarette/Vaping Use Never Used 03/20/25 12:08 Depression Screening Interpretation: Negative Thrive Assessment: Date of Thrive Assessment Date Thrive assessed 07/08/24 03/20/25 12:08 Currently or been in a relationship where the following occur: I choose not to answer Coding Level of Care Code Est Pt Prev Care 40-64y(53375) Diagnoses Adult general medical exam Z00.00 Laboratory exam ordered as part of routine general medical examination Z00.00 Bipolar affective disorder, currently depressed, mild F31.31 Active/Remission status: currently active Current bipolar episode type: depressed Current episode severity: mild Influenza vaccination declined Z28.21 History of mammogram Z92.89 History of Papanicolaou smear of cervix Z92.89 Colon cancer screening Z12.11 Additional Codes PHQ-9 - 80653 - PHQ-9 Billing: Yes ([id number]) Assessment & Plan Assessment & Plan (1) Adult general medical exam: Onset Date: ~03/20/25 Code(s): Z00.00 - Encounter for general adult medical examination without abnormal findings Category: Medical (2) Laboratory exam ordered as part of routine general medical examination: Code(s): Z00.00 - Encounter for general adult medical examination without abnormal findings Category: Medical (3) Bipolar disorder: Code(s): F31.9 - Bipolar disorder, unspecified Category: Medical Qualifiers: Active/Remission status: currently active Current bipolar episode type: depressed Current episode severity: mild Qualified Code(s): F31.31 - Bipolar disorder, current episode depressed, mild (4) Influenza vaccination declined: Onset Date: ~03/20/25 Code(s): Z28.21 - Immunization not carried out because of patient refusal Category: Medical (5) History of mammogram: Onset Date: ~06/2024 Comment: shay Code(s): Z92.89 - Personal history of other medical treatment Category: Medical (6) History of Papanicolaou smear of cervix: Onset Date: ~2024 Comment: shay Code(s): Z92.89 - Personal history of other medical treatment Category: Medical (7) Colon cancer screening: Code(s): Z12.11 - Encounter for screening for malignant neoplasm of colon Category: Medical Plan . Orders: Referrals Cologuard Test Z12.11 - Encounter for screening for malignant neoplasm of colon Patient Instructions: Health screenings for women You should visit your health care provider from time to time, even if you are healthy. The purpose of these visits is to: Screen for medical issues Assess your risk for future medical problems Encourage a healthy lifestyle Update vaccinations and other preventive care services Help you get to know your provider in case of an illness Information Even if you feel fine, you should still see your provider for regular checkups. These visits can help you avoid problems in the future. For example, the only way to find out if you have high blood pressure is to have it checked regularly. High blood sugar and high cholesterol levels also may not have any symptoms in the early stages. A simple blood test can check for these conditions. There are specific times when you should see your provider or receive specific health screenings. The [place] Preventive Services Task Force publishes a list of recommended screenings. Below are screening guidelines for women ages 18 to 39. BLOOD PRESSURE SCREENING Your blood pressure should be checked at least once every 3 to 5 years if: Your blood pressure is in the normal range (top number less than 120 mm Hg and bottom number less than 80 mm Hg) You don't have risk factors for high blood pressure Ask your provider if you need your blood pressure checked more often if: The top number is 120 to 129 mm Hg or the bottom number is 70 to 79 mm Hg You have diabetes, heart disease, kidney problems, are overweight, or have certain other health conditions You have a first-degree relative with high blood pressure You are Black You had high blood pressure during a If the top number is 130 mm Hg or greater or the bottom number is 80 mm Hg or greater, this is considered stage 1 hypertension. Schedule an appointment with your provider to learn how you can reduce your blood pressure. Watch for blood pressure screenings in your area. Ask your provider if you can stop in to have your blood pressure checked. BREAST CANCER SCREENING Experts do not agree about the benefits of breast self-exams in finding breast cancer or saving lives. Talk to your provider about what is best for you. A screening mammogram is not recommended for most women under age 40. Your provider may discuss and recommend mammograms, MRI scans, or ultrasounds if you have an increased risk for breast cancer, such as: A mother or sister who had breast cancer at a young age (most often starting screening earlier than the age the close relative was diagnosed) You carry a high-risk genetic marker CERVICAL CANCER SCREENING Cervical cancer screening should start at age 21 years unless your provider advises otherwise. After the first test: Women ages 21 through 29 should have a Pap test every 3 years. Exoprts do not agree on whether HPV testing is recommended for this age group. Women ages 30 through 65 should be screened with either a Pap test every 3 years or the HPV test every 5 years or both tests every 5 years (called cotesting ). Women who have been treated for precancer (cervical dysplasia) should continue to have Pap tests for 20 years after treatment or until age 65, whichever is longer. If you have had your uterus and cervix removed (total hysterectomy), and you have not been diagnosed with cervical cancer or precancer (high grade cervical neoplasia), you do not need cervical cancer screening. CHOLESTEROL SCREENING Cholesterol screening should begin at: Age 45 for women with no known risk factors for coronary heart disease Age 20 for women with known risk factors for coronary heart disease Repeat cholesterol screening should take place: Every 5 years for women with normal cholesterol levels More often if changes occur in lifestyle (including weight gain and diet) More often if you have diabetes, heart disease, kidney problems, or certain other conditions DIABETES SCREENING You should be screened for diabetes starting at age 35 and then repeated every 3 years if you have no risk factors for diabetes. Screening may need to start earlier and be repeated more often if you have other risk factors for diabetes, such as: You have a first degree relative with diabetes. You are overweight or have obesity. You have high blood pressure, prediabetes, or a history of heart disease. Screening for diabetes should be done if you are planning to become and you are overweight and have other risk factors such as high blood pressure. DENTAL EXAM Go to the dentist once or twice every year for an exam and cleaning. Your dentist will evaluate if you need more frequent visits. EYE EXAM Have an eye exam every 5 to 10 years before age 40. If you have vision problems, have an eye exam every 2 years or more often if recommended by your provider. You should have an eye exam that includes an examination of your retina (back of your eye) at least every year if you have diabetes. IMMUNIZATIONS Commonly needed vaccines include: Flu shot: get one every year. COVID-19 vaccine: ask your provider what is best for you. Tetanus-diphtheria and acellular pertussis (Tdap) vaccine: have one at or after age 19 as one of your tetanus-diphtheria vaccines if you did not receive it as an adolescent. Tetanus-diphtheria: have a booster (or Tdap) every 10 years. Varicella vaccine: receive 2 doses if you never had chickenpox or the varicella vaccine. Hepatitis B vaccine: receive 2, 3, or 4 doses, depending on your exact circu mstances. Measles, mumps, and rubella (MMR) vaccine: receive 1 to 2 doses if you are not already immune to MMR. Your provider can tell you if you are immune. Ask your provider about the human papillomavirus (HPV) vaccine if: You have not received the HPV vaccine in the past You have not completed the full vaccine series (you should catch up on this shot) Ask your provider if you should receive other immunizations if you have certain health problems that increase your risk for some diseases such as pneumonia. INFECTIOUS DISEASE SCREENING Women who are sexually active should be screened for chlamydia and gonorrhea up until age 25. Women 25 years and older should be screened for chlamydia and gonorrhea if at high risk. Screening for hepatitis C: All adults ages 18 to 79 should get a one-time test for hepatitis C. people should be screened at every . Screening for human immunodeficiency virus (HIV): All people ages 15 to 65 should get a one-time test for HIV. Depending on your lifestyle and medical history, you may also need to be screened for infections such as syphilis and HIV, as well as other infections. PHYSICAL EXAM All adults should visit their provider from time to time, even if they are healthy. The purpose of these visits is to: Screen for disease Assess your risk of future medical problems Encourage a healthy lifestyle Update your vaccinations and other preventive care services Maintain a relationship with a provider in case of an illness Your height, weight, and BMI should be checked at every exam. During your exam, your provider may ask you about: Depression and anxiety Diet and exercise Alcohol and tobacco use Safety issues, such as using seat belts, smoke detectors, and intimate partner violence Your medicines and risk for interactions SKIN SELF-EXAM Your provider may check your skin for signs of skin cancer, especially if you're at high risk, such as if you: Have had skin cancer before Have close relatives with skin cancer Have a weakened immune system OTHER SCREENING Talk with your provider about colon cancer screening if you have a strong family history of colon cancer or polyps, or if you have had inflammatory bowel disease or polyps yourself. Routine bone density screening of women under 40 is not recommended.
[2025-03-20 12:02] VITALS: BP 106/82; PULSE 51; RESP 12; TEMP 36.3; O2SAT 99; BMI 22.6
--- OUTSIDE RECORDS SUMMARY | 2025-03-20 14:50 | XMS_ITS | Encounter Summary ---
Author Organization [facility] Address [address] [facility] [address] [place] [address] Phone Care Team Providers Care Stone Polisher Hand Name Role Phone Javier Paez MD Primary Care Provider Ruby Ureña NP Primary Care Provider Encounter Details Date Type Department Care Team (Late st Contact Info) Description 08/27/2022 Transcribe Orders Virtual Department [address] [place] [address] Millicent Garcia NP 8 [place] [address] Encounter for long-term (current) use of other medications (Primary Dx) Social History Tobacco Use Types Packs/Day Years Used Date Smoking Tobacco: Former Smokeless Tobacco: Never Alcohol Use Standard Drinks/Week Comments Yes 0 (1 standard drink = 0.6 oz pur e alcohol) weekends Comments Unknown Sex and Gender Information Value Date Recorded Sex Assigned at Female 09/10/2020 12:07 AM EDT Legal Sex Female 9:22 PM EDT Gender Identity Female 09/10/2020 12:07 AM EDT Sexual Orientation Straight 09/10/2020 12 :07 AM EDT documented as of this encounter Plan of Treatment Upcoming Encounters Date Type Department Care Team (Late st Contact Info) Description 03/21/2025 10:00 AM EST Office Visit [facility] [address] [place] [address] Yrn Metzger MD [address] [phone] [email or web address] documented as of this encounter Visit Diagnoses Diagnosis Encounter for long-term (current) use of other medications- Primary documented in this encounter Care Teams Stone Polisher Hand Relationship Specialty Start Date End Date Javier Paez MD [address] [place] [address] [facility] [place] [address] PCP - General Internal Medicine 04/23/21 07/17/24 Ruby Ureña NP [address] [place] [id number] [email or web address] PCP - General Nurse Practitioner 07/18/24 documented as of this encounter Additional Source Comments The information contained in this document represents components of the legal health record. It is not the complete legal health record.[facility]
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
--- OUTSIDE RECORDS SUMMARY | 2025-03-20 14:50 | XMS_ITS | Clinical Summary ---
Author Organization [facility] Address [address] [place] [address] Phone Care Team Providers Care Ag Equipment Field Service Technician Name Role Phone Ruby Ureña DIRECTOR OF REHABILITATION AND WELLNESS Primary Care Provider Allergies No known active allergies Medications * This document contains information received from the source organization and may not represent a complete record from that organization. doxycycline monohydrate (MONODOX) 50 MG capsule 100 mg. 12/03/19 24 Active tretinoin (RETIN-A) 0.05 % cream Apply topically. 12/03/19 24 Active lamoTRIgine (LAMICTAL) 100 MG IMMEDIATE release tablet PLEASE SEE ATTACHED FOR DETAILED DIRECTIONS 02/17/20 24 Active progesterone (PROMETRIUM) 100 mg capsule Take 1 capsule (100 mg total) by mouth daily. 90 capsule 3 03/07/20 24 025 estradioL (CLIMARA) 0.025 mg/24 hrIndications:Hot flushes, perimenopausal Place 1 patch onto the skin once a week. 13 patch 3 03/07/20 24 025 Active Problems Problem Noted Date Diagnosed Date Hot flushes, perimenopausal 03/07/2024 Severe major depression 09/11/2020 Family History Relation Status Comments Father Mother Social History Tobacco Use Types Packs/Day Years Used Date Smoking Tobacco: Former Smokeless Tobacco: Never Alcohol Use Standard Drinks/Week Comments Yes 0 (1 standard drink = 0.6 oz pur e alcohol) weekends Education Answer Date Recorded Are you interested in more education? Not on elmira e 09/03/2022 Are you concerned about learning? Not on file 09/03/2022 No 09/03/2022 No 09/03/2022 Digital Access Answer Date Recorded No 10/04/2022 No 10/04/2022 Reliable internet access at home? Not on file 10/04/2022 Device with a working camera? Not on file Comments No Sex and Gender Information Value Date Recorded Sex Assigned at Female 09/10/2020 12:07 AM EDT Legal Sex Female 9:22 PM EDT Gender Identity Female 09/10/2020 12:07 AM EDT Sexual Orientation Straight 09/10/2020 12 :07 AM EDT Last Filed Vital Signs Vital Sign Reading Time Taken Comments Blood Pressure 108/70 03/07/2024 11:10 AM EDT Pulse 102 09/17/2020 9:00 AM EDT Temperature 36 C (96.8 F) 09/17/2020 9:00 AM EDT Respiratory Rate 16 09/16/2020 4:15 PM EDT Oxygen Saturation 100% 09/17/2020 9:00 AM EDT Inhaled Oxygen Concentration - - Weight 66.6 kg (146 lb 12.8 oz) 01/18/2024 2:28 PM EDT Height 167.6 cm (5' 6 ) 03/07/2024 11:1 0 AM EDT Body Mass Index 23.69 09/11/2020 2:18 PM EDT Plan of Treatment Upcoming Encounters Date Type Department Care Team (Late st Contact Info) Description 03/21/2025 10:00 AM EST Office Visit [facility] [address] [place] [address] [place] [address] Yrn Metzger MD [address] [place] [address], [address] [place] [address] [email or web address] Health Maintenance Due Date Last Done Comments DEPRESSION SCREENING 1992 SMOKING Hx and SMOKELESS TOBACCO SCREENING 02/13/1993 HEPATITIS C SCREENING 02/13/1998 HIV ONE-TIME SCREENING (18-6 5 YEARS) 02/13/1998 INFLUENZA VACCINE (#1) 2024 COVID-19 VACCINE (2024-2 6 season) 2025 07/29/2021, 09/19/2020, 08/29/2020 COLOGUARD 02/13/2025 COLONOSCOPY 02/13/2025 COLORECTAL CANCER SCREENING 02/13/2025 FIT TEST 02/13/2025 FOBT 02/13/2025 SIGMOIDOSCOPY 02/13/2025 VIRTUAL COLONOSCOPY 02/13/2025 LIPID PANEL 01/07/2026 01/07/2021, 09/12/2020 MAMMOGRAM 06/15/2026 06/15/2024 PAP SMEAR 01/17/2027 01/18/2024 Adult Td,Tdap Booster 07/11/2034 07/11/2024 HEPATITIS A VACCINES Aged Out No long er eligible based on patient's age to complete this topic HIB VACCINES Aged Out No longer eligi ble based on patient's age to complete this topic IPV VACCINES Aged Out No longer eligi ble based on patient's age to complete this topic MENINGOCOCCAL VACCINES (ACWY) Aged Out No longer eligible based on patient's age to complete this topic MENINGOCOCCAL VACCINES (B) Aged Out N o longer eligible based on patient's age to complete this topic PNEUMOCOCCAL VACCINES (0-49 years) Aged Out No longer eligible b ased on patient's age to complete this topic Medical Devices Not on file Procedures Procedure Name Priority Date/Time Associated Diagnosis Comments BI MAMMOGRAM SCREENING WITH TOMOSYNTHESIS WITH CAD (BILATERAL) Routine 06/15/2024 9:20 AM EST Encounter for gynecological examination without abnormal finding PAP TEST Routine 01/18/2024 12:00 AM EDT LIPID PANEL Routine 01/07/2021 11:23 AM EDT Encounter for therapeutic drug monitoring Encounter for long-term (current) use of other medications from Last 3 Months or Most Recently Relevant to Health Maintenance Results * BI MAMMOGRAM SCREENING WITH TOMOSYNTHESIS WITH CAD (BILATERAL) (06/15/2024 9:20 AM EST) Anatomical Region Laterality Modality Breast Left, Breast Right, Breast Bilateral Bila teral Mammography 06/15/2024 10:4 6 AM EST Impressions 06/15/2024 10:46 AM EST No mammographic evidence of malignancy in either breast. Annual screening mammography is recommended. BI-RADS 1 NEGATIVE The patient will be notified of the results and recommendations. Narrative 06/15/2024 10:46 AM EST BI MAMMOGRAM SCREENING WITH TOMOSYNTHESIS WITH CAD (BILATERAL) Additional patient information: Screening. COMPARISON: This is a baseline examination. Breast composition: There are scattered areas of fibroglandular density. FINDINGS: No abnormal masses, suspicious calcifications, or other significant findings are identified mammographically in either breast. Procedure Note Sue Castaneda MD - 06/15/2024 BI MAMMOGRAM SCREENING WITH TOMOSYNTHESIS WITH CAD (BILATERAL) Additional patient information: Screening. COMPARISON: This is a baseline examination. Breast composition: There are scattered areas of fibroglandular density. FINDINGS: No abnormal masses, suspicious calcifications, or other significantfindings are identified mammographically in either breast. IMPRESSION: No mammographic evidence of malignancy in either breast. Annual screening mammography is recommended. BI-RADS 1 NEGATIVE The patient will be notified of the results and recommendations. us Yrn Metzger MD IMG MG EXAMS Final Re sult * Pap Test (01/18/2024 12:00 AM EDT) Report [address] [address] [employer] Internship: Miladis Prince MD TELEVISION PRODUCTION CLERK Cytology Report FINAL DIAGNOSIS A. PAP SMEAR (THIN PREP) CE: SPECIMEN ADEQUACY: Satisfactory for evaluation; transformation zone present. INTERPRETATION: NEGATIVE FOR INTRAEPITHELIAL LESION OR MALIGNANCY. Fungal organisms morphologically consistent with Yasmine species. Electronically Signed Out By: ELMER Barth(ASCP) The Pap test is a screening test primarily for squamous cancers and precursors and has associated false-negative and false-positive results. New technologies such as liquid-based preparations may decrease but will not eliminate all false-negative results. Regular sampling and follow-up of unexplained clinical signs and symptoms are recommended to minimize false negative results. PROCEDURES/ADDENDA HPV Testing (Requested) Ordered Date: 01/19/2024 A. PAP SMEAR (THIN PREP) CE: Human Papilloma Virus Test NEGATIVE for high-risk Human Papilloma Virus types 16, 18, 45 and the Other high risk probe set (Includes 31, 33, 35, 39, 51, 52, 56, 58, 59, 66, 68) Note: Testing performed by [employer] HR-HPV analysis. Clinical correlation is advised. This HPV test was performed at [address] This test has been FDA approved for both SurePath and ThinPrep cervical cytology specimens. The accuracy and precision of this test for all other specimen sources has been verified in the Cytopathology Laboratory of the [facility] and has not been cleared or approved by the U.S. Food and Drug Administration. Clinical correlation is advised. CLINICAL HISTORY Date of Last Menstrual Period: 01-05-2024 Other Clinical Conditions: Screening Pap SPECIMEN SOURCE A: PAP SMEAR (THIN PREP) CE Patient Name: CODIE KO : 1980 (Age: 43) Sex: F Institution: [facility] Location: [facility] Date of Collection: 01/18/2024 Date of Reported: 01/23/2024 14:39 Results to: Yrn Metzger MD [facility] Final Diagnosis A. PAP SMEAR (THIN PREP) CE: SPECIMEN ADEQUACY: Satisfactory for evaluation; transformation zone present. INTERPRETATION: NEGATIVE FOR INTRAEPITHELIAL LESION OR MALIGNANCY. Fungal organisms morphologically consistent with Yasmine species. [facility] Results\Inter pretation A. PAP SMEAR (THIN PREP) CE: Human Papilloma Virus TestNEGATIVE for high-risk Human Papilloma Virus types 16, 18, 45 and the Other high risk probe set (Includes 31, 33, 35, 39, 51, 52, 56, 58, 59, 66, 68)Note: Testing performed by [employer] HR-HPV analysis. Clinical correlation is advised. This HPV test was performed at [address] This test has been FDA approved for both SurePath and ThinPrep cervical cytology specimens. The accuracy and precision of this test for all other specimen sources has been verified in the [facility] of the [facility] and has not been cleared or approved by the U.S. Food and Drug Administration. Clinical correlation is advised. [facility] Conversion Type (Conversion Source) 01/18/2024 01/19/2024 9:00 AM EDT us Yrn Metzger MD CYTOLOGY ORDERABLES Edit ed Result - Final Performing Organization Address City/[facility]/ZIP Co de Phone Number [address] [address] * (ABNORMAL) Lipid panel (01/07/2021 11:23 AM EDT) HDL 59 mg/dL [facility] Comment: Interpretation <40 mg/dL: Low HDL cholesterol (major risk factor for CHD) Greater than or equal to 60 mg/dL: High HDL cholesterol ( negative risk factor for CHD) HDL - cholesterol is affected by a number of factors, e.g. smoking, excerise, hormones, sex and age. CHOLESTEROL 156 0 - 240 mg/dL [facility] TRIGLYCERIDES 94 30 - 160 mg/dL [facility] LDL 78 50 - 129 mg/dL [facility] Comment: LDL levels in terms of risk for coronary heart disease: <100 mg/dL: Optimal 100-129 mg/dL: Near or above optimal 130-159 mg/dL: Borderline high 160-189 mg/dL: High >190 mg/dL: Very High CARDIAC RISK RATIO 2.6(L) 3.3 - 4.4 C [facility] Blood 01/07/2021 11:2 3 AM EDT 01/07/2021 11:25 AM EDT us Jefferson Cardona NP LAB BLOOD BKR ORDERABLES Final R esult Performing Organization Address City/[facility]/ZIP Co de Phone Number [address] [address] from Last 3 Months or Most Recently Relevant to Health Maintenance Insurance [place] [address] [place] [address] [place] [address] [place] [address] [employer] [place] [address] [place] [address] ACO A[employer] Advance Directives For more information, please contact: [phone] (9AM - 5PM [place], Tuesday-Tuesday) * Full Code (Latest Code Status on File) Date Activated Date Inactivated Comments 09/11/2020 2:11 PM Question Answer Comments Code Status Confirmed With: Patient Care Teams Ag Equipment Field Service Technician Relationship Specialty Start Date End Date Ruby Ureña NP [address] [place] [address] [email or web address] PCP - General Nurse Practitioner 07/18/24 Additional Source Comments The information contained in this document represents components of the legal health record. It is not the complete legal health record.[facility]
--- OUTSIDE RECORDS SUMMARY | 2025-03-20 14:50 | XMS_ITS | Encounter Summary ---
Author Organization [facility] Address [address] [place] [address] Phone Care Team Providers Care Risk Officer Name Role Phone Javier Paez MD Primary Care Provider [phone] Ruby Ureña NP Primary Care Provider Encounter Details Date Type Department Care Team (Late st Contact Info) Description 01/18/2024 Procedure Pass [facility], [address] [address] Social History Tobacco Use Types Packs/Day Years [...] Description 03/21/2025 10:00 AM EST Office Visit [facility] [address] [place] [address] Yrn Metzger MD [address] [facility], [address] [place] [address] [email or web address] documented as of this encounter Visit Diagnoses Not on filedocumented in this encounter Care Teams Risk Officer Relationship Specialty Start Date End Date Javier Paez MD [address] [place] [address] [address] PCP - General Internal Medicine 04/23/21 07/17/24 Ruby Ureña NP [address] [place] [phone] [email or web address] PCP - General Nurse Practitioner 07/18/24 documented as of this encounter Additional Source Comments The information contained in this document represents components of the legal health record. It is not the complete legal health record.[facility]
== END 2025-03-20 12:25 | disposition home or self-care (01) ==
LOC: HO.HMCFM 11:58
PROVIDERS: PCP Nurse Practitioner Family; Visit Provider Nurse Practitioner Family
DX: Z00.00 Encounter for general adult medical examination without abnormal findings (principal); F31.31 Bipolar disorder, current episode depressed, mild; Z28.21 Immunization not carried out because of patient refusal; Z92.89 Personal history of other medical treatment; Z12.11 Encounter for screening for malignant neoplasm of colon

== ENCOUNTER → 2025-03-20 11:57 | Outpatient (BNVA) | payer OTHER, SELFPAY | PROVIDERS: PCP Nurse Practitioner Family; Visit Provider Nurse Practitioner Family | DX: Z00.00 Encounter for general adult medical examination without abnormal findings (principal); F31.9 Bipolar disorder, unspecified; N95.9 Unspecified menopausal and perimenopausal disorder; L70.9 Acne, unspecified; K59.00 Constipation, unspecified; F31.31 Bipolar disorder, current episode depressed, mild; Z28.21 Immunization not carried out because of patient refusal | CPT/HCPCS: 96127; 99396 ==